=== PATIENT | female | born 1975 | race Two or more races ===

== ENCOUNTER 2023-01-20 07:27 | Day surgery (SDC) | payer OTHER ==
[2023-01-17 10:34] VITALS: BMI 23.8
[2023-01-20] MEDS ORDERED: MIDAZOLAM HCL 2 MG/2 ML SINGLE DOSE VIAL ONE (08:47)
[2023-01-20] MEDS ORDERED: ROPIVACAINE HCL 0.5% 30ML VIAL ONE (08:48)
[2023-01-20] MEDS ORDERED: DEXAMETHASONE SOD PHOSPHATE 4 MG/1 ML VIAL ONE (08:48)
[2023-01-20] MEDS ORDERED: ONDANSETRON 4 MG/2 ML VIAL ONE ×2 (08:48→14:10)
[2023-01-20] MEDS ORDERED: CEFAZOLIN 2 GM in DEXTROSE 5%-WATER - 50 ML IVPB ONE (09:00)
[2023-01-20] MEDS ORDERED: VANCOMYCIN 1,000 MG VIAL (RESTRICTED TO ID ONLY) ONE ×2 (09:08→10:59)
[2023-01-20] MEDS ORDERED: TRANEXAMIC ACID 1000 MG/10 ML VIAL IVPUSH ONE (10:00)
[2023-01-20] MEDS ORDERED: BUPIVICAINE 0.25%/MORPH PF/KETOROLAC - 51ML DISP.SYRINGE IA ONE ×2 (10:25→12:50)
[2023-01-20] MEDS ORDERED: PROPOFOL 20 ML ONE ×4 (10:30→13:15)
[2023-01-20] MEDS ORDERED: ceFAZolin SODIUM 1 GM VIAL ONE ×2 (10:31)
[2023-01-20] MEDS ORDERED: TRANEXAMIC ACID 1000 MG/10 ML VIAL ONE (10:31)
[2023-01-20] MEDS ORDERED: BUPIVACAINE HCL/PF 0.5% (5MG/ML) 10 ML VIAL ONE (10:43)
[2023-01-20] MEDS ORDERED: PHENYLEPHRINE HCL 10 MG/1 ML SINGLE DOSE VIAL ONE (10:56)
[2023-01-20] MEDS ORDERED: SODIUM CHLORIDE 0.9% P/F 10 ML VIAL IJ ONE (11:20)
[2023-01-20] MEDS ORDERED: LACTATED RINGERS SOLUTION 1,000 ML IV SCH ×2 (12:15→14:00)
[2023-01-20] MEDS ORDERED: ONDANSETRON 4 MG/2 ML VIAL IVPUSH PRN ×2 (12:15→13:50)
[2023-01-20] MEDS ORDERED: oxyCODONE HCL 5 MG TABLET PO PRN (12:15)
[2023-01-20] MEDS ORDERED: KETOROLAC TROMETHAMINE 30 MG/1 ML VIAL ONE (12:29)
[2023-01-20] MEDS ORDERED: VANCOMYCIN 1,000 MG VIAL (RESTRICTED TO ID ONLY) IVPB ONE (12:43)
[2023-01-20] MEDS ORDERED: MAG HYDROX/AL HYDROX/SIMETH 30 ML UNIT-DOSE CUP PO PRN (13:50)
[2023-01-20] MEDS ORDERED: MAGNESIUM HYDROX 2400MG/30ML ORAL SUSPENSION 30 ML CUP PO PRN (13:50)
[2023-01-20] MEDS ORDERED: FENTANYL CITRATE/PF 50 MCG/ML VIAL ONE (14:10)
[2023-01-20] MEDS: ACETAMINOPHEN 1000 MG/100 ML BAG IVPB ONE ×2 (14:13→20:35)
[2023-01-20] MEDS: ACETAMINOPHEN 1000 MG/100 ML BAG IVPB SCH (19:28)
[2023-01-20] MEDS: CEFAZOLIN 1 GM in DEXTROSE 5%-WATER - 50 ML IVPB SCH (19:44)
[2023-01-20] MEDS: oxyCODONE HCL 5 MG TABLET PO PRN (21:42)
[2023-01-20] MEDS: SENNOSIDES/DOCUSATE COMBO (SENNA PLUS) TABLET (UD) PO SCH (21:42)
[2023-01-20] MEDS: GABAPENTIN 300 MG CAPSULE PO SCH (21:42)
[2023-01-20] MEDS ORDERED: ASPIRIN 81 MG CHEWABLE TABLETS PO SCH (22:00)
[2023-01-21] MEDS: ACETAMINOPHEN 1000 MG/100 ML BAG IVPB SCH ×3 (02:15→14:20)
[2023-01-21] MEDS: CEFAZOLIN 1 GM in DEXTROSE 5%-WATER - 50 ML IVPB SCH ×2 (03:45→10:01)
[2023-01-21 07:50] LABS: MCH 32.1 pg (25.7-33.7); MCHC 33.4 g/dl (32.0-36.0); MEAN CELL VOLUME 96.2 fl (80-96); MEAN PLT VOLUME 8.2 fl (7.5-11.1); RBC 3.12 10^6/uL (3.60-5.2); RDW 13.7 % (11.6-15.6); WHITE BLOOD COUNT 11.9 10^3/uL (4.0-10.8)
[2023-01-21 08:15] LABS: BLOOD UREA NITROGEN 12.8 mg/dl (7-18); CALCIUM 8.6 mg/dl (8.5-10.1); CREATININE 0.7 mg/dl (0.6-1.3); POTASSIUM 4.2 mmol/L (3.5-5.1)
[2023-01-21] MEDS: oxyCODONE HCL 5 MG TABLET PO PRN (08:25)
[2023-01-21] MEDS: GABAPENTIN 300 MG CAPSULE PO SCH (09:16)
[2023-01-21] MEDS: SENNOSIDES/DOCUSATE COMBO (SENNA PLUS) TABLET (UD) PO SCH (09:16)
[2023-01-21 09:19] VITALS: PULSE 64; RESP 18; TEMP 97.8
[2023-01-21] MEDS ORDERED: PANTOPRAZOLE 40 MG TABLET PO SCH (10:00)
[2023-01-21] MEDS ORDERED: ASPIRIN 81 MG CHEWABLE TABLETS PO SCH (10:00)
[2023-01-21 15:21] VITALS: BP 102/55
== END 2023-01-21 15:23 | disposition home or self-care (01) ==
LOC: FASUSAT 07:27 → SUATTDRO 07:27 → FM/S 15:35 → FASUSAT 01-21 15:23
PROVIDERS: ATTEND Internal Medicine
PROC: 8E0Y0CZ Robotic Assisted Procedure of Lower Extremity, Open Approach (ICD-10-PCS; 2023-01-20)
PROC: 0SR90JA Replacement of Right Hip Joint with Synthetic Substitute, Uncemented, Open Approach (ICD-10-PCS; principal; 2023-01-20 11:16)
DX: M87.051 Idiopathic aseptic necrosis of right femur (principal)
CPT/HCPCS: 20985; 27130; C1776; S2900; 36415; 73502-TC-RT-FY; 80048; 84703; 85027; 88305-TC; 88311-TC; 94760; 97010-GP; 97116-GP; 97162-GP; C1889